=== PATIENT | female | born 1975 | race Two or more races ===

== ENCOUNTER 2023-12-23 14:35 | Emergency (ER) | payer MEDICAID ==
[~2023-12-23] VITALS: Ht 157.5 cm; Wt 88.0 kg
[2023-12-23 14:42] VITALS: BP 114/74; PULSE 87; RESP 18; TEMP 98; O2SAT 97
[2023-12-23 15:57] LABS: BASOPHILS % (AUTO) 0.7 % (0.0-2.0); EOSINOPHILS % (AUTO) 0.4 % (0.0-4.0); HEMATOCRIT 37.6 % (36-48); HEMOGLOBIN 12.2 g/dL (12.0-16.0); LYMPHOCYTES # (AUTO) 1.9 K/uL (2.5-16.5); LYMPHOCYTES % (AUTO) 30.8 % (20.5-51.1); MEAN CORPUSCULAR HEMOGLOBIN 24 pg (27-31); MEAN CORPUSCULAR HGB CONC 33 g/dL (33-37); MEAN CORPUSCULAR VOLUME 74.3 fL (80-94); MONOCYTES # (AUTO) 0.5 K/uL (0.8-1.0); MONOCYTES % (AUTO) 7.4 % (1.7-9.3); NEUTROPHILS # (AUTO) 3.8 K/uL (1.8-7.7); NEUTROPHILS % (AUTO) 60.7 % (42.2-75.2); PLATELET COUNT (AUTO) 225 K/uL (140-450); RED BLOOD CELL COUNT(AUTO) 5.06 MIL/uL (4.20-5.40); RED CELL DISTRIBUTION WIDTH 13.9 % (11.6-13.7); WHITE BLOOD COUNT (AUTO) 6.2 K/uL (4.8-10.8)
[2023-12-23 16:13] LABS: ANION GAP 11.3 (8-16); CARBON DIOXIDE 28.8 mmol/L (21-32); CREATININE 0.7 mg/dL (0.6-1.3); POTASSIUM 4.1 mmol/L (3.5-5.1)
[2023-12-23] MEDS: FAMOTIDINE 20 MG TAB PO ONE (16:24)
[2023-12-23] MEDS: ALUMINUM HYD/MAG/SIMETHICONE 30 ML UDC PO ONE (16:24)
[2023-12-23 17:18] VITALS: BP 121/72; PULSE 80; RESP 18; TEMP 97.8; O2SAT 98
[2023-12-23] MEDS: KETOROLAC 30 MG/ML VIAL IM ONE (17:27)
[2023-12-23] MEDS ORDERED: NAPR-54 PO (17:32)
== END 2023-12-23 17:36 | disposition home or self-care (01) ==
LOC: MED 14:35
DX: R07.9 Chest pain, unspecified (principal); Z79.899 Other long term (current) drug therapy
CPT/HCPCS: 36415; 71045; 80048; 84484; 85025; 93005; 96372; 99285; J1885